=== PATIENT | male | born 1975 | race Caucasian/White ===

== ENCOUNTER 2022-06-11 12:25 | Emergency (ER) | payer BC, OTHER ==
[~2022-06-11] VITALS: Ht 175.2 cm; Wt 83.9 kg
== END 2022-06-11 12:53 | disposition left against medical advice (07) ==
LOC: ED 12:25
DX: M25.532 Pain in left wrist (principal); Z53.21 Procedure and treatment not carried out due to patient leaving prior to being seen by health care provider; Z88.0 Allergy status to penicillin; Z88.6 Allergy status to analgesic agent

== ENCOUNTER 2022-06-15 13:22 | Emergency (ER) | payer BC, OTHER | END 2022-06-15 13:35 | disposition left against medical advice (07) | LOC: ED 13:22 | DX: M25.539 Pain in unspecified wrist (principal); Z88.0 Allergy status to penicillin; Z88.5 Allergy status to narcotic agent; Z53.21 Procedure and treatment not carried out due to patient leaving prior to being seen by health care provider ==